=== PATIENT | female | born 1995 | race Caucasian/White ===

== ENCOUNTER 2025-10-07 16:22 | Inpatient (IN) | payer OTHER ==
[~2025-10-07] VITALS: Ht 167.6 cm; Wt 130.2 kg
[2025-10-07 16:36] VITALS: O2SAT 98
[2025-10-07 17:26] LABS: BASOPHILS % 0.6 % (0.0-2.0); EOSINOPHILS % 1.5 % (0.0-5.0); HEMATOCRIT. 36.2 % (36.0-48.0); HEMOGLOBIN. 12.1 g/dL (12.0-16.0); LYMPHOCYTES % 20.4 % (20.0-50.0); MEAN PLATELET VOLUME 8.2 fl (7.4-10.4); MONOCYTES % 8.3 % (2.0-8.0); NEUTROPHILS % 69.2 % (40.0-76.0); PLATELET 264 x1000/uL (130-400); RED BLOOD CELL COUNT 4.58 mill/uL (4.2-5.4); RED CELL DISTRIBUTION WIDTH 15.2 % (11.6-14.6)
[2025-10-07 17:39] LABS: CREATININE 0.6 mg/dL (0.6-1.0)
[2025-10-07 17:40] LABS: UREA NITROGEN BLOOD < 5 mg/dL (9-23)
[2025-10-07 17:48] LABS: GLUCOSE URINE NEGATIVE (NEGATIVE); KETONES URINE NEGATIVE (NEGATIVE); LEUKOCYTE ESTERASE URINE TRACE (NEGATIVE); NITRITE URINE NEGATIVE (NEGATIVE); OCCULT BLOOD URINE 3+ (NEGATIVE); PH URINE 7.0 (4.5-8.0); PROTEIN URINE TRACE (NEGATIVE); SPECIFIC GRAVITY URINE 1.005 (1.005-1.030); UROBILINOGEN URINE 0.2 E.U./dL (0.2-1.0)
[2025-10-07 17:52] LABS: B-HCG QUANTITATIVE 16421 mIU/mL (<6)
[2025-10-07 18:23] LABS: COLOR URINE STRAW (YELLOW)
[2025-10-07 18:24] LABS: BACTERIA URINE TRACE; MUCUS URINE TRACE /lpf (< = 2+); RBC URINE 0-2 /hpf (0-2); SQUAMOUS EPITHELIAL CELL URINE 1+ /lpf (RARE/1+); WBC URINE 0-2 /hpf (0-2)
[2025-10-07 18:25] LABS: CLARITY URINE SL HAZY (CLEAR)
[2025-10-07] MEDS: SODIUM CHLORIDE 0.9% 1,000 ML IV ONE ×2 (21:21→23:00)
[2025-10-07] MEDS: CEFTRIAXONE 1GM/50ML 50 ML IV ONE (21:21)
[2025-10-08] MEDS: SODIUM CHLORIDE 0.9% 500 ML IV ONE (05:30)
[2025-10-08] MEDS: ACETAMINOPHEN 325MG TABLET PO NR (05:30)
[2025-10-08 12:00] VITALS: BP 140/80; PULSE 100; RESP 16; TEMP 36.7
[2025-10-08 16:00] VITALS: BP 135/81; PULSE 91; RESP 17; TEMP 36.6; O2SAT 99
[2025-10-08 16:14] VITALS: BP 140/80; PULSE 100; RESP 16; TEMP 36.7516
[2025-10-08 20:00] VITALS: BP 119/68; PULSE 92; RESP 18; TEMP 35.7; O2SAT 97
[2025-10-09] VITALS: BP 132/73; PULSE 77; RESP 18; TEMP 36.7; O2SAT 100
[2025-10-09 04:00] VITALS: BP 137/87; PULSE 90; RESP 18; TEMP 36.6; O2SAT 99
[2025-10-09 08:00] VITALS: BP 128/80; PULSE 89; RESP 17; TEMP 36.4; O2SAT 98
[2025-10-09] MEDS: PRENATAL VIT/FE FUMARATE/FA TABLET PO SCH (08:46)
[2025-10-09 12:00] VITALS: BP 135/83; PULSE 87; RESP 18; TEMP 36.5; O2SAT 98
[2025-10-09 16:00] VITALS: BP 138/79; PULSE 89; RESP 17; TEMP 36.6; O2SAT 98
[2025-10-09 20:00] VITALS: BP 127/78; PULSE 83; RESP 19; TEMP 36.7; O2SAT 98
[2025-10-09] MEDS: DOCUSATE SODIUM 100MG CAPSULE PO SCH (21:14)
[2025-10-09] MEDS: LACTATED RINGERS 1,000 ML IV SCH (21:47)
[2025-10-09] MEDS: AMPICILLIN 2,000 MG in SODIUM CHLORIDE 0.9% 100 ML IV SCH (23:08)
[2025-10-10] VITALS: BP 130/80; PULSE 80; RESP 18; TEMP 37.1; O2SAT 98
[2025-10-10 04:00] VITALS: BP 121/62; PULSE 79; RESP 19; TEMP 37.1; O2SAT 98
[2025-10-10 08:00] VITALS: BP 121/78; PULSE 89; RESP 19; TEMP 36.2; O2SAT 95
[2025-10-10 12:00] VITALS: BP 133/74; PULSE 91; RESP 20; TEMP 36.4; O2SAT 96
[2025-10-10 12:32] VITALS: BP 121/78; PULSE 89; RESP 19; TEMP 97.2
[2025-10-10] MEDS ORDERED: ACETAMINOPHEN 650MG/20.3ML UDC PO ONE (13:45)
== END 2025-10-10 13:35 | disposition short-term general hospital (02) | DRG 779 ==
LOC: ER 16:22 → 6EST 10-08 09:15
PROVIDERS: ADMIT Obstetrics & Gynecology; ATTEND Obstetrics & Gynecology
DX: O03.4 Incomplete spontaneous abortion without complication (principal)
CPT/HCPCS: 36415; 76805; 80048; 81003; 84702; 85014; 85018; 85025; 86850; 86900; 99285; J0290; J0696; J7030; J7050; J7120